=== PATIENT | female | born 1940 | race Caucasian/White ===

== ENCOUNTER 2021-05-22 14:47 | Emergency (ER) | payer MEDICARE, OTHER ==
[~2021-05-22] VITALS: Ht 167.6 cm; Wt 65.8 kg
[2021-05-22] MEDS ORDERED: TETANUS/DIPHTHERIA TOX ADULT 0.5 ML SYR IM ONE (16:30)
[2021-05-22 17:16] VITALS: BP 139/57
== END 2021-05-22 17:18 | disposition home or self-care (01) ==
LOC: EDBD 14:56 → ER 14:56
DX: S42.201A Unspecified fracture of upper end of right humerus, initial encounter for closed fracture (principal); S51.011A Laceration without foreign body of right elbow, initial encounter; W01.0XXA Fall on same level from slipping, tripping and stumbling without subsequent striking against object, initial encounter; Y93.01 Activity, walking, marching and hiking; Y92.89 Other specified places as the place of occurrence of the external cause; F03.90 Unspecified dementia, unspecified severity, without behavioral disturbance, psychotic disturbance, mood disturbance, and anxiety; E78.5 Hyperlipidemia, unspecified; M06.9 Rheumatoid arthritis, unspecified; Z98.84 Bariatric surgery status
CPT/HCPCS: 90471; 90714; 99284